=== PATIENT | female | born 1975 | race African-American/Black ===

== ENCOUNTER 2017-05-01 11:45 | Emergency (ER) | payer MEDICAID ==
[~2017-05-01] VITALS: Ht 167.6 cm; Wt 75.7 kg
[2017-05-01] MEDS ORDERED: [UNRECOGNIZED DRUG - REMARK] (12:00)
[2017-05-01] MEDS ORDERED: [UNRECOGNIZED DRUG - REMARK] (12:00)
[2017-05-01] MEDS ORDERED: DESL5TAB42 PO (12:00)
[2017-05-01 13:20] LABS: BASOPHILS % (AUTO) 0.7 % (0.0-2.0); EOSINOPHILS # (AUTO) 0.5 K/uL (0.0-0.7); EOSINOPHILS % (AUTO) 9.9 % (0.0-7.0); HEMATOCRIT 37.2 % (31.2-41.9); HEMOGLOBIN 12.2 g/dL (10.9-14.3); LYMPHOCYTES # (AUTO) 1.4 K/uL (20.0-40.0); LYMPHOCYTES % (AUTO) 27.1 % (20.5-51.5); MEAN CORPUSCULAR HEMOGLOBIN 24.4 uug (24.7-32.8); MEAN CORPUSCULAR HGB CONC 33 g/dL (32.3-35.6); MEAN CORPUSCULAR VOLUME 74.5 fL (75.5-95.3); MONOCYTES # (AUTO) 0.3 K/uL (2.0-10.0); MONOCYTES % (AUTO) 6.6 % (0.0-11.0); NEUTROPHILS # (AUTO) 2.8 K/uL (1.8-8.9); NEUTROPHILS % (AUTO) 55.7 % (38.5-71.5); PLATELET COUNT (AUTO) 162 K/uL (179-408); RED BLOOD CELL COUNT(AUTO) 4.99 MIL/uL (3.63-4.92)
[2017-05-01 13:34] LABS: *BILIRUBIN,URIN NEGATIVE (NEGATIVE); *BLOOD, URINE NEGATIVE (NEGATIVE); *CLARITY,URINE CLEAR (CLEAR); *COLOR,URINE YELLOW (YELLOW); *KETONES,URINE NEGATIVE (NEGATIVE); *PROTEIN,URINE NEGATIVE (NEGATIVE); *UROBILINOGEN,URINE 0.2 E.U./dl (NORMAL); LEUKOCYTE ESTERASE ,URINE TRACE (NEGATIVE); NITRITE, URINE NEGATIVE (NEGATIVE); UGLUCOSE NEGATIVE (NEGATIVE)
[2017-05-01 13:36] LABS: CREATININE 0.8 mg/dL (0.6-1.3); POTASSIUM 3.9 mmol/L (3.5-5.1)
[2017-05-01 13:42] LABS: BILIRUBIN,TOTAL 0.8 mg/dL (0.2-1.0); TOTAL PROTEIN, SERUM 7.9 g/dL (6.4-8.2)
[2017-05-01 13:53] LABS: *URINE HCG, QUAL NEGATIVE (NEGATIVE)
[2017-05-01 13:59] LABS: BACTERIA,URINE NONE SEEN /HPF (NONE SEEN); RBC,URINE 0-3 /HPF (0-3)
[2017-05-01 14:00] LABS: SQUAMOUS EPITHELIAL CELL,UR MODERATE /HPF (NONE SEEN)
[2017-05-01 14:07] LABS: BAND % (MANUAL) 1 % (0-10); BASOPHILS % (MANUAL) 1 % (0-2); EOSINOPHILS % (MANUAL) 8 % (0-8); LYMPHOCYTES % (MANUAL) 21 % (20-40); MONOCYTES % (MANUAL) 6 % (2-10); NEUTROPHILS % (MANUAL) 63 % (42-75)
--- NOTE | 2017-05-01 14:20 | NUR ---
Pt resting in gurney with no s/s of acute distress noted.
--- NOTE | 2017-05-01 15:10 | NUR ---
Patient discharged to home in stable conditon. Written and verbal after care instructions given. Patient verbalizes understanding of instructions.pt walks in steady gait, pt eubreathing, no sign of distress. pt says feels better.
[2017-05-01 15:26] VITALS: BP 139/79
== END 2017-05-01 15:27 | disposition home or self-care (01) ==
LOC: ER 11:47
DX: J45.909 Unspecified asthma, uncomplicated (principal); R51 Headache; I10 Essential (primary) hypertension
CPT/HCPCS: 36415; 71010; 84703; 85025; A4663; J1885; J3590

== ENCOUNTER 2017-07-02 16:46 | Emergency (ER) | payer MEDICAID ==
[~2017-07-02] VITALS: Ht 167.6 cm; Wt 77.1 kg
[~2017-07-02 16:46] MED LIST: DESL5TAB42 PO; [UNRECOGNIZED DRUG - REMARK]; [UNRECOGNIZED DRUG - REMARK]
--- NOTE | 2017-07-02 17:13 | NUR ---
PT WAS EVALUATED BY DR LUND. PT WAS D/C TO HOME. D/C INSTRUCTIONS GIVEN TO THE PT.
[2017-07-02 17:18] VITALS: BP 132/69
== END 2017-07-02 17:18 | disposition home or self-care (01) ==
LOC: ER 16:49
DX: J45.909 Unspecified asthma, uncomplicated (principal); I10 Essential (primary) hypertension
CPT/HCPCS: 99283; A4663

== ENCOUNTER 2017-08-26 15:23 | Emergency (ER) | payer MEDICAID ==
[~2017-08-26] VITALS: Ht 167.6 cm; Wt 77.1 kg
[2017-08-26] MEDS ORDERED: IBUP800T54 PO (15:45)
[2017-08-26 17:07] LABS: BASOPHILS % (AUTO) 0.9 % (0.0-2.0); EOSINOPHILS # (AUTO) 0.4 K/uL (0.0-0.7); HEMATOCRIT 37.9 % (31.2-41.9); HEMOGLOBIN 12.2 g/dL (10.9-14.3); LYMPHOCYTES # (AUTO) 1.6 K/uL (20.0-40.0); LYMPHOCYTES % (AUTO) 33.6 % (20.5-51.5); MEAN CORPUSCULAR HEMOGLOBIN 23.6 uug (24.7-32.8); MEAN CORPUSCULAR HGB CONC 32 g/dL (32.3-35.6); MONOCYTES # (AUTO) 0.2 K/uL (2.0-10.0); MONOCYTES % (AUTO) 4.8 % (0.0-11.0); NEUTROPHILS # (AUTO) 2.5 K/uL (1.8-8.9); NEUTROPHILS % (AUTO) 52.7 % (38.5-71.5); PLATELET COUNT (AUTO) 167 K/uL (179-408); RED BLOOD CELL COUNT(AUTO) 5.18 MIL/uL (3.63-4.92); WHITE BLOOD COUNT (AUTO) 4.8 K/uL (3.8-11.8)
[2017-08-26 17:12] LABS: CREATININE 0.7 mg/dL (0.6-1.3); POTASSIUM 3.7 mmol/L (3.5-5.1)
[2017-08-26 17:18] LABS: BILIRUBIN,DIRECT 0.2 mg/dL (0.0-0.2); BILIRUBIN,TOTAL 0.6 mg/dL (0.2-1.0); TOTAL PROTEIN, SERUM 7.7 g/dL (6.4-8.2)
[2017-08-26 18:49] LABS: *BILIRUBIN,URIN NEGATIVE (NEGATIVE); *BLOOD, URINE NEGATIVE (NEGATIVE); *CLARITY,URINE CLEAR (CLEAR); *COLOR,URINE YELLOW (YELLOW); *KETONES,URINE NEGATIVE (NEGATIVE); *PROTEIN,URINE NEGATIVE (NEGATIVE); *UROBILINOGEN,URINE 0.2 E.U./dl (NORMAL); LEUKOCYTE ESTERASE ,URINE NEGATIVE (NEGATIVE); NITRITE, URINE NEGATIVE (NEGATIVE); PH,URINE 7.5 (5.0-8.0); UGLUCOSE NEGATIVE (NEGATIVE)
[2017-08-26 18:57] LABS: BACTERIA,URINE FEW /HPF (NONE SEEN); RBC,URINE 0-3 /HPF (0-3); SQUAMOUS EPITHELIAL CELL,UR FEW /HPF (NONE SEEN); WBC,URINE 0-3 /HPF (0-3)
[2017-08-26 19:24] VITALS: BP 138/106
== END 2017-08-26 19:28 | disposition home or self-care (01) ==
LOC: ER 15:24
DX: R10.32 Left lower quadrant pain (principal); M54.5 Low back pain; J02.9 Acute pharyngitis, unspecified; I10 Essential (primary) hypertension; J45.909 Unspecified asthma, uncomplicated
CPT/HCPCS: 36415; 71045; 74176; 80048; 80076; 81001; 83690; 84703; 85025; 99285; A4663

== ENCOUNTER 2018-05-06 07:10 | Emergency (ER) | payer MEDICAID ==
[~2018-05-06] VITALS: Ht 165.1 cm; Wt 73.5 kg
[~2018-05-06 07:10] MED LIST changes: -DESL5TAB42 PO; +IBUP800T54 PO; -[UNRECOGNIZED DRUG - REMARK]; -[UNRECOGNIZED DRUG - REMARK]
[2018-05-06] MEDS ORDERED: IPRATROPIUM BROMIDE 0.5 MG/2.5 ML NEBU NEB ONE (07:30)
[2018-05-06] MEDS ORDERED: ALBUTEROL SULFATE 2.5 MG/3 ML NEBU NEB ONE (07:30)
[2018-05-06] MEDS ORDERED: ALBUTEROL SULFATE 2.5 MG/3 ML NEBU ONE (07:52)
[2018-05-06] MEDS ORDERED: IPRATROPIUM BROMIDE 0.5 MG/2.5 ML NEBU ONE (07:52)
--- NOTE | 2018-05-06 08:31 | NUR ---
Patient discharged to home in stable conditon. Written and verbal after care instructions given. Patient verbalizes understanding of instructions.PT WALKS IN STEADY GAIT. PT SAYS FEELS BETTER, NO SIGN OF DISTRESS AT THIS TIME.
[2018-05-06 08:32] VITALS: BP 131/88
== END 2018-05-06 08:39 | disposition home or self-care (01) ==
LOC: ER 07:11
DX: J06.9 Acute upper respiratory infection, unspecified (principal); M25.522 Pain in left elbow; M25.572 Pain in left ankle and joints of left foot; I10 Essential (primary) hypertension; J45.909 Unspecified asthma, uncomplicated
CPT/HCPCS: 71045; 73080; 73610; 94640; 99284; A4663; J3590

== ENCOUNTER 2018-09-25 08:34 | Emergency (ER) | payer MEDICAID ==
[~2018-09-25] VITALS: Ht 165.1 cm; Wt 52.6 kg
[2018-09-25] MEDS ORDERED: KETOROLAC TROMETHAMINE 30 MG INJ ONE (08:57)
[2018-09-25] MEDS ORDERED: KETOROLAC TROMETHAMINE 30 MG INJ IM ONE (09:00)
--- NOTE | 2018-09-25 09:14 | NUR ---
Patient discharged to home in stable conditon & brisk steady gait. Written and verbal after care instructions given to patient. Patient verbalizes understanding of instructions.
== END 2018-09-25 09:16 | disposition home or self-care (01) ==
LOC: ER 08:34
DX: S16.1XXA Strain of muscle, fascia and tendon at neck level, initial encounter (principal); S39.012A Strain of muscle, fascia and tendon of lower back, initial encounter; M62.830 Muscle spasm of back; I10 Essential (primary) hypertension; J45.909 Unspecified asthma, uncomplicated; Z79.1 Long term (current) use of non-steroidal anti-inflammatories (NSAID); V49.9XXA Car occupant (driver) (passenger) injured in unspecified traffic accident, initial encounter; Y93.89 Activity, other specified; Y92.89 Other specified places as the place of occurrence of the external cause; Y99.8 Other external cause status
CPT/HCPCS: 96372; 99283; J1885; A4663

== ENCOUNTER 2019-09-05 08:11 | Emergency (ER) | payer MEDICAID ==
[~2019-09-05] VITALS: Ht 167.6 cm; Wt 74.8 kg
--- NOTE | 2019-09-05 08:26 | NUR ---
patient brought into room. doctor yuridia to see patient.
[2019-09-05] MEDS ORDERED: ALBUTEROL SULFATE 2.5 MG/3 ML NEBU ONE (08:43)
[2019-09-05] MEDS ORDERED: predniSONE 20 MG TABLET ONE (08:44)
[2019-09-05] MEDS ORDERED: IPRATROPIUM BROMIDE 0.5 MG/2.5 ML NEBU ONE (08:44)
[2019-09-05] MEDS ORDERED: IPRATROPIUM BROMIDE 0.5 MG/2.5 ML NEBU NEB ONE (08:45)
[2019-09-05] MEDS ORDERED: predniSONE 20 MG TABLET PO ONE (08:45)
[2019-09-05] MEDS ORDERED: ALBUTEROL SULFATE 2.5 MG/3 ML NEBU NEB ONE (08:45)
--- NOTE | 2019-09-05 08:45 | NUR ---
RECEIVED BREATHING TREATMENT.
[2019-09-05] MEDS ORDERED: HYDROCODONE/APAP 10-325 MG TABLET ONE (08:53)
[2019-09-05] MEDS ORDERED: HYDROCODONE/APAP 10-325 MG TABLET PO ONE (09:00)
--- NOTE | 2019-09-05 10:41 | NUR ---
PATIENT DISCHARGE MEDICATION AND PRESCRIPTIONS GIVEN. INSTRUCTED PATIENT NOT TO DRIVE DUE TO MEDICATIONS.
--- NOTE | 2019-09-05 10:42 | NUR ---
DISHARGE PAPERWORK GIVEN AND SIGNED
== END 2019-09-05 10:47 | disposition home or self-care (01) ==
LOC: ER 08:11
DX: S13.4XXA Sprain of ligaments of cervical spine, initial encounter (principal); J06.9 Acute upper respiratory infection, unspecified; I10 Essential (primary) hypertension; J45.909 Unspecified asthma, uncomplicated; Z79.1 Long term (current) use of non-steroidal anti-inflammatories (NSAID); X58.XXXA Exposure to other specified factors, initial encounter; Y93.89 Activity, other specified; Y92.89 Other specified places as the place of occurrence of the external cause; Y99.8 Other external cause status
CPT/HCPCS: 72040; 72220; 94640; 99283; J7512; A4663; J3590

== ENCOUNTER 2020-08-21 09:52 | Emergency (ER) | payer MEDICAID, OTHER ==
[~2020-08-21] VITALS: Ht 167.6 cm; Wt 54.4 kg
--- NOTE | 2020-08-21 10:09 | NUR ---
DR PAUL AT BEDSIDE FOR PT EVALUATION
[2020-08-21] MEDS ORDERED: ALBUTEROL SULFATE 8 GM HFA.AER.AD IH ONE (10:15)
[2020-08-21] MEDS ORDERED: HYDROCHLOROTHIAZIDE 25 MG TABLET PO ONE (10:15)
[2020-08-21] MEDS ORDERED: HYDROCHLOROTHIAZIDE 25 MG TABLET ONE (10:19)
[2020-08-21] MEDS ORDERED: LISINOPRIL 10 MG TABLET PO ONE (10:30)
--- NOTE | 2020-08-21 10:31 | NUR ---
Covid swab sent
[2020-08-21 10:42] VITALS: BP 180/105
[2020-08-21] MEDS ORDERED: LISINOPRIL 10 MG TABLET ONE (10:44)
[2020-08-21] MEDS ORDERED: predniSONE 20 MG TABLET PO ONE (10:45)
[2020-08-21 11:25] LABS: *URINE HCG, QUAL NEG (NEGATIVE)
[2020-08-21] MEDS ORDERED: predniSONE 20 MG TABLET ONE (11:32)
--- NOTE | 2020-08-21 11:40 | NUR ---
Per Dr. Pemberton, pt stable for discharge. DC instructions and prescriptions given and reviewed with patient. Verbalized understanding. Left ER in stable condition.
== END 2020-08-21 11:43 | disposition home or self-care (01) ==
LOC: MERGE 09:52 → ER 09:52
DX: J45.901 Unspecified asthma with (acute) exacerbation (principal); I10 Essential (primary) hypertension; Z76.0 Encounter for issue of repeat prescription; Z20.822 Contact with and (suspected) exposure to COVID-19
CPT/HCPCS: 71045; 84703; A4663; J3535; J7512; U0003

== ENCOUNTER 2020-09-29 19:36 | Emergency (ER) | payer MEDICAID, OTHER ==
[~2020-09-29] VITALS: Ht 167.6 cm; Wt 74.8 kg
--- NOTE | 2020-09-29 19:40 | NUR ---
Dr. Ramesh at bedside for MSE
[2020-09-29] MEDS ORDERED: IPRATROPIUM BROMIDE 0.5 MG/2.5 ML NEBU NEB ONE ×3 (20:00)
[2020-09-29] MEDS ORDERED: methylPREDNISolone SOD SUCC 125 MG/2 ML VIAL IV ONE (20:00)
[2020-09-29] MEDS ORDERED: ALBUTEROL SULFATE 2.5 MG/3 ML NEBU NEB ONE ×3 (20:00)
[2020-09-29] MEDS ORDERED: methylPREDNISolone SOD SUCC 125 MG/2 ML VIAL ONE (20:07)
[2020-09-29] MEDS ORDERED: MAGNESIUM SULFATE/D5W 200 ML ONE (20:07)
[2020-09-29] MEDS: MAGNESIUM SULFATE/D5W 100 ML IV SCH (20:10)
--- NOTE | 2020-09-29 21:48 | NUR ---
IV removed. Catheter intact and site benign. Pressure and 4x4 gauze applied to site. No bleeding noted.Patient discharged to home in stable condition. Written and verbal after care instructions given. Patient verbalizes understanding of instructions. Stressed follow up or return to ER for worsening s/s. Patient ambulating with steady gait. NAD noted
[2020-09-29 22:30] VITALS: BP 143/92
== END 2020-09-29 21:48 | disposition home or self-care (01) ==
LOC: ER 19:36
DX: J45.901 Unspecified asthma with (acute) exacerbation (principal); R00.0 Tachycardia, unspecified; R03.0 Elevated blood-pressure reading, without diagnosis of hypertension; Z20.822 Contact with and (suspected) exposure to COVID-19
CPT/HCPCS: 87426; 94640; 96365; 96375; 99284; J2930; J3475

== ENCOUNTER 2021-02-11 09:05 | Emergency (ER) | payer MEDICAID ==
[~2021-02-11] VITALS: Ht 167.6 cm; Wt 72.6 kg
[2021-02-11] MEDS ORDERED: HYDROCODONE/APAP 5-325MG TABLET PO ONE (09:45)
[2021-02-11] MEDS ORDERED: HYDROCODONE/APAP 5-325MG TABLET ONE (09:55)
[2021-02-11 10:25] LABS: *URINE HCG, QUAL NEGATIVE (NEGATIVE)
--- NOTE | 2021-02-11 11:27 | NUR ---
Patient is resting comfortably on gurney while using her personal electronic device, NAD, pending results@this time.
[2021-02-11] MEDS ORDERED: HYDR-4275 PO (12:08)
[2021-02-11] MEDS ORDERED: ONDA4TAB11 PO (12:08)
--- NOTE | 2021-02-11 12:16 | NUR ---
Patient discharged to home in stable condition with steady gait. Written and verbal after care instructions given to patient. Patient verbalized understanding & compliance of instructions. Stressed follow up with primary doctor or return to ER for worsening s/s.
== END 2021-02-11 12:16 | disposition home or self-care (01) ==
LOC: ER 09:05
DX: S06.0X0A Concussion without loss of consciousness, initial encounter (principal); S16.1XXA Strain of muscle, fascia and tendon at neck level, initial encounter; V49.40XA Driver injured in collision with unspecified motor vehicles in traffic accident, initial encounter; Y92.410 Unspecified street and highway as the place of occurrence of the external cause; J45.909 Unspecified asthma, uncomplicated
CPT/HCPCS: 70450; 71101; 72100; 72125; 84703; A4663

== ENCOUNTER 2021-03-16 13:25 | Emergency (ER) | payer MEDICAID ==
[~2021-03-16] VITALS: Ht 167.6 cm; Wt 74.8 kg
[~2021-03-16 13:25] MED LIST changes: +HYDR-4275 PO; +ONDA4TAB11 PO
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
[2021-03-16] MEDS ORDERED: ALBUTEROL SULFATE 2.5 MG/3 ML NEBU NEB ONE (14:00)
[2021-03-16] MEDS ORDERED: CYCL5TAB PO (14:38)
[2021-03-16] MEDS ORDERED: NAPR-1192 PO (14:38)
[2021-03-16] MEDS ORDERED: ALBUTEROL SULFATE 2.5 MG/3 ML NEBU ONE (14:57)
--- NOTE | 2021-03-17 08:20 | NUR ---
Pt called back regarding her covid test and her son's, informed that both tested POSITIVE. She will call back later in the day for PCR results if available.
--- NOTE | 2021-03-18 17:47 | NUR ---
Called the patient to let her know that she is positive for Covid. Quarantine instructions given etc.
== END 2021-03-16 15:26 | disposition home or self-care (01) ==
LOC: ER 13:25
DX: M54.16 Radiculopathy, lumbar region (principal); S39.012A Strain of muscle, fascia and tendon of lower back, initial encounter; V49.40XA Driver injured in collision with unspecified motor vehicles in traffic accident, initial encounter; Y92.410 Unspecified street and highway as the place of occurrence of the external cause; U07.1 COVID-19; J45.909 Unspecified asthma, uncomplicated; R94.31 Abnormal electrocardiogram [ECG] [EKG]
CPT/HCPCS: 71045; 72131; 87426; 93005; 99285; U0003; A4663

== ENCOUNTER 2021-05-07 11:15 | Emergency (ER) | payer MEDICAID ==
[~2021-05-07] VITALS: Ht 167.6 cm; Wt 74.8 kg
[~2021-05-07 11:15] MED LIST changes: +CYCL5TAB PO; +NAPR-1192 PO
[2021-05-07] MEDS: methylPREDNISolone SOD SUCC 125 MG/2 ML VIAL IV ONE (12:12)
[2021-05-07] MEDS: ALBUTEROL SULFATE 2.5 MG/3 ML NEBU NEB ONE ×4 (12:14→14:01)
[2021-05-07] MEDS: IPRATROPIUM BROMIDE 0.5 MG/2.5 ML NEBU NEB ONE ×4 (12:14→14:01)
[2021-05-07] MEDS ORDERED: methylPREDNISolone SOD SUCC 125 MG/2 ML VIAL ONE (12:21)
[2021-05-07] MEDS ORDERED: ALBUTEROL SULFATE 2.5 MG/3 ML NEBU ONE ×3 (12:43→14:00)
[2021-05-07] MEDS ORDERED: IPRATROPIUM BROMIDE 0.5 MG/2.5 ML NEBU ONE ×3 (12:43→14:00)
--- NOTE | 2021-05-07 13:00 | NUR ---
PT CO "STRESS HEADACHE", NOTIFIED.
[2021-05-07] MEDS: ACETAMINOPHEN ES 500 MG TABLET PO ONE (13:14)
[2021-05-07] MEDS ORDERED: ACETAMINOPHEN ES 500 MG TABLET ONE (13:18)
--- NOTE | 2021-05-07 14:30 | NUR ---
Patient discharged to home in stable condition. Written and verbal after care instructions given. Patient verbalizes understanding of instructions. Stressed follow up or return to ER for worsening s/s.PT SAYS FEELS BETTER, READY TO GO HOME. PT WALKS IN STEADY GAIT, NO SIGN OF DISTRESS.
[2021-05-07] MEDS ORDERED: IBUP-1955 PO (14:32)
[2021-05-07] MEDS ORDERED: ALBU2.5V13 NEB (14:32)
[2021-05-07] MEDS ORDERED: ALBU8.5H8 INH (14:32)
[2021-05-07] MEDS ORDERED: PRED20TA PO (14:32)
[2021-05-07 14:42] VITALS: BP 121/81
== END 2021-05-07 14:30 | disposition home or self-care (01) ==
LOC: ER 11:15
DX: J45.901 Unspecified asthma with (acute) exacerbation (principal)
CPT/HCPCS: 93005; 94640 ×3; 96374; 99285; J2930; A4663; A9150; J3590

== ENCOUNTER 2021-09-13 01:06 | Emergency (ER) | payer MEDICAID ==
[~2021-09-13] VITALS: Ht 167.6 cm; Wt 74.8 kg
[~2021-09-13 01:06] MED LIST changes: +ALBU2.5V13 NEB; +ALBU8.5H8 INH; +IBUP-1955 PO; +PRED20TA PO
--- NOTE | 2021-09-13 01:38 | NUR ---
pt a/o c/o sob. pt sitting upright in bed leaning over bedside table.
[2021-09-13] MEDS ORDERED: IPRATROPIUM BROMIDE 0.5 MG/2.5 ML NEBU NEB ONE (02:00)
[2021-09-13] MEDS ORDERED: ALBUTEROL SULFATE 2.5 MG/3 ML NEBU NEB ONE (02:00)
[2021-09-13] MEDS ORDERED: methylPREDNISolone SOD SUCC 125 MG/2 ML VIAL IV ONE (02:00)
[2021-09-13] MEDS ORDERED: methylPREDNISolone SOD SUCC 125 MG/2 ML VIAL ONE (02:03)
[2021-09-13] MEDS ORDERED: IPRATROPIUM BROMIDE 0.5 MG/2.5 ML NEBU ONE (02:04)
[2021-09-13] MEDS ORDERED: ALBUTEROL SULFATE 2.5 MG/ 0.5 ML NEBU ONE (02:04)
[2021-09-13] MEDS ORDERED: ALBU0.63 IH (02:10)
[2021-09-13] MEDS ORDERED: ALBU8.5H8 IH (02:10)
[2021-09-13] MEDS ORDERED: FLUT1DIS28 INH (02:10)
[2021-09-13] MEDS ORDERED: PRED20TA PO (02:10)
[2021-09-13 02:19] LABS: HEMATOCRIT 36.3 % (31.2-41.9); MEAN CORPUSCULAR HEMOGLOBIN 25.6 uug (24.7-32.8); PLATELET COUNT (AUTO) 189 K/uL (179-408)
[2021-09-13] MEDS ORDERED: ALBUTEROL SULFATE 2.5 MG/3 ML NEBU ONE (02:19)
[2021-09-13 02:26] LABS: CREATININE 0.8 mg/dL (0.6-1.3); POTASSIUM 3.5 mmol/L (3.5-5.1)
[2021-09-13 02:38] LABS: BILIRUBIN,DIRECT 0.1 mg/dL (0.0-0.2); BILIRUBIN,TOTAL 0.5 mg/dL (0.2-1.0); TOTAL PROTEIN, SERUM 7.1 g/dL (6.4-8.2)
[2021-09-13 03:02] VITALS: BP 151/90
--- NOTE | 2021-09-13 03:02 | NUR ---
Patient discharged to home in stable condition. Written and verbal after care instructions given. Patient verbalizes understanding of instructions. Stressed follow up or return to ER for worsening s/s. pt ambulated with steady gait. denies pain and SOB.
== END 2021-09-13 03:05 | disposition home or self-care (01) ==
LOC: ER 01:20
DX: J45.901 Unspecified asthma with (acute) exacerbation (principal); Z20.822 Contact with and (suspected) exposure to COVID-19; R03.0 Elevated blood-pressure reading, without diagnosis of hypertension
CPT/HCPCS: 36415; 80048; 80076; 83880; 84702; 85025; 87426; 94644; 96374; 99285; J2930; A4663; J3590

== ENCOUNTER 2022-07-07 05:25 | Emergency (ER) | payer MEDICAID ==
[~2022-07-07] VITALS: Ht 167.6 cm; Wt 74.8 kg
[~2022-07-07 05:25] MED LIST changes: +ALBU0.63 IH; +ALBU8.5H8 IH; +FLUT1DIS28 INH
[2022-07-07] MEDS ORDERED: ACETAMINOPHEN ES 500 MG TABLET PO ONE (06:15)
[2022-07-07] MEDS ORDERED: ACETAMINOPHEN ES 500 MG TABLET ONE (06:38)
[2022-07-07] MEDS ORDERED: PRED20TA PO (07:08)
[2022-07-07] MEDS ORDERED: ALBU18HF2 INH (07:08)
[2022-07-07] MEDS ORDERED: BENZ-13 PO (07:08)
[2022-07-07] MEDS ORDERED: IBUP-1955 PO (07:08)
[2022-07-07 08:09] VITALS: BP 132/78
== END 2022-07-07 08:10 | disposition home or self-care (01) ==
LOC: ER 05:43
DX: U07.1 COVID-19 (principal); J45.909 Unspecified asthma, uncomplicated; I10 Essential (primary) hypertension
CPT/HCPCS: 87400; A4663; A9150

== ENCOUNTER 2022-09-16 11:24 | Emergency (ER) | payer MEDICAID ==
[~2022-09-16] VITALS: Ht 167.6 cm; Wt 73.0 kg
[~2022-09-16 11:24] MED LIST changes: +ALBU18HF2 INH; +BENZ-13 PO
[2022-09-16] MEDS ORDERED: IPRATROPIUM BROMIDE 0.5 MG/2.5 ML NEBU NEB ONE ×2 (12:00→12:45)
[2022-09-16] MEDS ORDERED: predniSONE 10 MG TABLET PO ONE (12:00)
[2022-09-16] MEDS ORDERED: ALBUTEROL SULFATE 2.5 MG/3 ML NEBU NEB ONE ×2 (12:00→12:45)
[2022-09-16] MEDS ORDERED: ACETAMINOPHEN ES 500 MG TABLET PO ONE (12:00)
[2022-09-16] MEDS ORDERED: ACETAMINOPHEN ES 500 MG TABLET ONE (12:12)
[2022-09-16] MEDS ORDERED: predniSONE 20 MG TABLET ONE (12:12)
[2022-09-16] MEDS ORDERED: ALBUTEROL SULFATE 2.5 MG/3 ML NEBU ONE ×2 (12:15→12:51)
[2022-09-16] MEDS ORDERED: IPRATROPIUM BROMIDE 0.5 MG/2.5 ML NEBU ONE ×2 (12:15→12:51)
[2022-09-16] MEDS ORDERED: PRED50TA PO (12:40)
[2022-09-16] MEDS ORDERED: ALBU6.7H9 INH (12:40)
[2022-09-16] MEDS ORDERED: FLUT1DIS28 INH (13:34)
[2022-09-16] MEDS ORDERED: IBUPROFEN 400 MG TABLET ONE (13:42)
[2022-09-16] MEDS ORDERED: IBUPROFEN 400 MG TABLET PO ONE (13:45)
--- NOTE | 2022-09-16 14:03 | NUR ---
Patient discharged to home in stable condition. Written and verbal after care instructions given. Patient verbalizes understanding of instructions. Stressed follow up or return to ER for worsening s/s.
[2022-09-16 14:28] VITALS: BP 137/81
== END 2022-09-16 14:03 | disposition home or self-care (01) ==
LOC: ER 11:24
DX: J45.901 Unspecified asthma with (acute) exacerbation (principal); S69.92XA Unspecified injury of left wrist, hand and finger(s), initial encounter; X58.XXXA Exposure to other specified factors, initial encounter; Y92.89 Other specified places as the place of occurrence of the external cause; Z20.822 Contact with and (suspected) exposure to COVID-19; I10 Essential (primary) hypertension
CPT/HCPCS: 99285; 87426; 29130; 87804 ×2; 93005; 73120; 94640 ×2; J7512; A4663; A9150; J3590

== ENCOUNTER 2024-06-08 22:43 | Emergency (ER) | payer MEDICAID ==
[~2024-06-08] VITALS: Ht 1706.9 cm; Wt 74.8 kg
[~2024-06-08 22:43] MED LIST changes: +ALBU6.7H9 INH; +PRED50TA PO
[2024-06-08] MEDS ORDERED: IV D5W-0.9% NS 1000 ML BAG IV ONE (22:45)
[2024-06-08] MEDS ORDERED: THIAMINE HCL 200 MG/2 ML VIAL IV ONE (22:45)
[2024-06-08] MEDS ORDERED: METOCLOPRAMIDE HCL 10 MG/2 ML VIAL IV ONE (22:45)
[2024-06-08] MEDS ORDERED: KETOROLAC TROMETHAMINE 30 MG INJ ONE (23:35)
[2024-06-08] MEDS: KETOROLAC TROMETHAMINE 30 MG INJ IM ONE (23:40)
[2024-06-08 23:42] LABS: BASOPHILS % (AUTO) 0.9 % (0.0-2.0); EOSINOPHILS # (AUTO) 0.2 K/uL (0.0-0.7); EOSINOPHILS % (AUTO) 5.6 % (0.0-7.0); HEMATOCRIT 34.7 % (31.2-41.9); HEMOGLOBIN 11.4 g/dL (10.9-14.3); LYMPHOCYTES # (AUTO) 1.4 K/uL (0.8-4.8); LYMPHOCYTES % (AUTO) 38.6 % (20.5-51.5); MEAN CORPUSCULAR HGB CONC 33 g/dL (32.3-35.6); MEAN CORPUSCULAR VOLUME 76.4 fL (75.5-95.3); MONOCYTES # (AUTO) 0.3 K/uL (0.1-1.30); MONOCYTES % (AUTO) 8.5 % (0.0-11.0); NEUTROPHILS # (AUTO) 1.7 K/uL (1.8-8.9); NEUTROPHILS % (AUTO) 46.4 % (38.5-71.5); PLATELET COUNT (AUTO) 167 K/uL (179-408); RED BLOOD CELL COUNT(AUTO) 4.55 MIL/uL (3.63-4.92); WHITE BLOOD COUNT (AUTO) 3.7 K/uL (3.8-11.8)
[2024-06-09 00:12] LABS: ALANINE AMINOTRANSFERASE 32 U/L (14-59); ALBUMIN 3.4 g/dL (3.4-5.0); ALKALINE PHOSPHATASE 95 U/L (50-136); ASPARTATE AMINOTRANSFERASE 20 U/L (15-37); BILIRUBIN,DIRECT 0.2 mg/dL (0.0-0.2); BILIRUBIN,TOTAL 0.8 mg/dL (0.2-1.0); CALCIUM 9.4 mg/dL (8.5-10.1); CARBON DIOXIDE 33 mmol/L (21-32); CHLORIDE 103 mmol/L (98-107); CREATININE 0.7 mg/dL (0.6-1.3); GLUCOSE 114 mg/dL (74-106); POTASSIUM 3.2 mmol/L (3.5-5.1); SODIUM SERUM 141 mmol/L (136-145); TOTAL PROTEIN, SERUM 6.9 g/dL (6.4-8.2); UREA NITROGEN, BLOOD 18 mg/dL (7-18)
[2024-06-09] MEDS ORDERED: POTASSIUM CHLORIDE 20 MEQ TAB.PRT.SR PO ONE (01:00)
[2024-06-09] MEDS ORDERED: POTASSIUM CHLORIDE 20 MEQ TAB.PRT.SR ONE (01:02)
[2024-06-09] MEDS ORDERED: POTASSIUM CHLORIDE 20 MEQ POWDER PACKET ONE (01:09)
[2024-06-09 01:22] LABS: *BILIRUBIN,URIN NEGATIVE (NEGATIVE); *BLOOD, URINE NEGATIVE (NEGATIVE); *CLARITY,URINE CLEAR (CLEAR); *COLOR,URINE YELLOW (YELLOW); *KETONES,URINE NEGATIVE (NEGATIVE); *PROTEIN,URINE NEGATIVE (NEGATIVE); *UROBILINOGEN,URINE 0.2 E.U./dl (NORMAL); LEUKOCYTE ESTERASE ,URINE NEGATIVE (NEGATIVE); NITRITE, URINE NEGATIVE (NEGATIVE); UGLUCOSE NEGATIVE (NEGATIVE)
[2024-06-09] MEDS: POTASSIUM CHLORIDE 20 MEQ POWDER PACKET PO STA (01:22)
[2024-06-09 01:41] LABS: *URINE HCG, QUAL NEGATIVE (NEGATIVE)
[2024-06-09] MEDS ORDERED: AMOX-430 PO (01:49)
[2024-06-09] MEDS ORDERED: FLUT16SP16 BNOSTRILS (01:49)
[2024-06-09 02:25] VITALS: BP 116/71; O2SAT 97
== END 2024-06-09 02:25 | disposition home or self-care (01) ==
LOC: ER 22:43
DX: J01.90 Acute sinusitis, unspecified (principal); J20.9 Acute bronchitis, unspecified; E87.6 Hypokalemia; R10.2 Pelvic and perineal pain; I11.9 Hypertensive heart disease without heart failure; R51.9 Headache, unspecified; R07.89 Other chest pain; R94.31 Abnormal electrocardiogram [ECG] [EKG]; R42 Dizziness and giddiness; J45.909 Unspecified asthma, uncomplicated; Z79.51 Long term (current) use of inhaled steroids; Z79.52 Long term (current) use of systemic steroids; Z88.7 Allergy status to serum and vaccine
CPT/HCPCS: 99285; 71045; 80076; 80048; 85025; 84484; 36415; 93005 ×2; 96372; 81003; 84703; J1885; A4606; A4663

== ENCOUNTER 2025-03-26 17:58 | Emergency (ER) | payer MEDICAID ==
[~2025-03-26] VITALS: Ht 167.6 cm; Wt 72.6 kg
[~2025-03-26 17:58] MED LIST changes: +AMOX-430 PO; +FLUT16SP16 BNOSTRILS
[2025-03-26 19:10] LABS: PLATELET COUNT (AUTO) 180 K/uL (179-408); RED BLOOD CELL COUNT(AUTO) 4.73 MIL/uL (3.63-4.92); RED CELL DISTRIBUTION WIDTH 14.1 % (12.3-17.7); WHITE BLOOD COUNT (AUTO) 3.8 K/uL (3.8-11.8)
[2025-03-26 19:11] LABS: *BILIRUBIN,URIN NEGATIVE (NEGATIVE); *BLOOD, URINE NEGATIVE (NEGATIVE); *CLARITY,URINE CLEAR (CLEAR); *COLOR,URINE LIGHT YELLOW (YELLOW); *KETONES,URINE NEGATIVE (NEGATIVE); *PROTEIN,URINE NEGATIVE (NEGATIVE); *UROBILINOGEN,URINE 0.2 E.U./dl (NORMAL); LEUKOCYTE ESTERASE ,URINE 2+ (NEGATIVE); NITRITE, URINE NEGATIVE (NEGATIVE); UGLUCOSE NEGATIVE (NEGATIVE)
[2025-03-26 19:12] LABS: *URINE HCG, QUAL NEGATIVE (NEGATIVE)
[2025-03-26 19:16] LABS: CREATININE 0.5 mg/dL (0.6-1.3); SODIUM SERUM 141 mmol/L (136-145); UREA NITROGEN, BLOOD 12 mg/dL (7-18)
[2025-03-26 19:17] LABS: SQUAMOUS EPITHELIAL CELL,UR FEW /HPF (NONE SEEN)
[2025-03-26 19:23] LABS: ASPARTATE AMINOTRANSFERASE 18 U/L (15-37); TOTAL PROTEIN, SERUM 6.7 g/dL (6.4-8.2)
[2025-03-26] MEDS ORDERED: KETOROLAC TROMETHAMINE 30 MG INJ ONE ×2 (20:22)
[2025-03-26] MEDS ORDERED: ACETAMINOPHEN 500 MG TABLET ONE (20:22)
[2025-03-26] MEDS ORDERED: SULFAMETH/TRIMETH 800/160 MG TABLET ONE (20:22)
[2025-03-26 20:24] VITALS: TEMP 98
[2025-03-26] MEDS: KETOROLAC TROMETHAMINE 30 MG INJ IVP ONE (20:24)
[2025-03-26] MEDS: ACETAMINOPHEN 500 MG TABLET PO ONE (20:24)
[2025-03-26] MEDS: SULFAMETH/TRIMETH 800/160 MG TABLET PO ONE (20:24)
[2025-03-26 20:36] VITALS: BP 148/95
[2025-03-26] MEDS ORDERED: SULF1TAB48 PO (21:06)
[2025-03-26] MEDS ORDERED: FLUT16SP16 BNOSTRILS (21:07)
[2025-03-26 21:32] VITALS: BP 151/78; O2SAT 98
== END 2025-03-26 21:33 | disposition home or self-care (01) ==
LOC: ER 18:01
DX: R07.89 Other chest pain (principal); N39.0 Urinary tract infection, site not specified; I10 Essential (primary) hypertension; J45.909 Unspecified asthma, uncomplicated; Z79.51 Long term (current) use of inhaled steroids; Z79.52 Long term (current) use of systemic steroids; Z88.7 Allergy status to serum and vaccine
CPT/HCPCS: 99285; 96374; 71045; 80076; 80048; 81001; 84703; 85025; 85730; 87086; 84484 ×2; 36415; 93005; J1885 ×2; A4606; A4663; A9150

== ENCOUNTER 2025-06-16 04:10 | Emergency (ER) | payer MEDICAID ==
[~2025-06-16] VITALS: Ht 167.6 cm; Wt 72.6 kg
[~2025-06-16 04:10] MED LIST changes: +SULF1TAB48 PO
[2025-06-16 04:47] LABS: *BILIRUBIN,URIN NEGATIVE (NEGATIVE); *BLOOD, URINE NEGATIVE (NEGATIVE); *COLOR,URINE YELLOW (YELLOW); *KETONES,URINE NEGATIVE (NEGATIVE); *PROTEIN,URINE NEGATIVE (NEGATIVE); *UROBILINOGEN,URINE 0.2 E.U./dl (NORMAL); LEUKOCYTE ESTERASE ,URINE TRACE (NEGATIVE); NITRITE, URINE NEGATIVE (NEGATIVE); UGLUCOSE NEGATIVE (NEGATIVE)
[2025-06-16 04:48] LABS: *CLARITY,URINE HAZY (CLEAR)
[2025-06-16 04:52] LABS: *URINE HCG, QUAL NEGATIVE (NEGATIVE)
[2025-06-16 05:03] LABS: PLATELET COUNT (AUTO) 193 K/uL (179-408); RED BLOOD CELL COUNT(AUTO) 5.01 MIL/uL (3.63-4.92); RED CELL DISTRIBUTION WIDTH 13.6 % (12.3-17.7); WHITE BLOOD COUNT (AUTO) 4.8 K/uL (3.8-11.8)
[2025-06-16 05:08] LABS: SQUAMOUS EPITHELIAL CELL,UR FEW /HPF (NONE SEEN)
[2025-06-16 05:09] LABS: CREATININE 0.9 mg/dL (0.6-1.3); SODIUM SERUM 143.0 mmol/L (136-145); UREA NITROGEN, BLOOD 12.0 mg/dL (7-18)
[2025-06-16 05:15] LABS: ASPARTATE AMINOTRANSFERASE 22.0 U/L (15-37); TOTAL PROTEIN, SERUM 7.1 g/dL (6.4-8.2)
[2025-06-16 05:25] VITALS: BP 136/88
[2025-06-16] MEDS ORDERED: PANTOPRAZOLE SODIUM 40 MG TABLET.DR PO ONE (06:08)
[2025-06-16] MEDS: PANTOPRAZOLE SODIUM 40 MG TABLET.DR PO ONE (06:11)
[2025-06-16] MEDS ORDERED: PANT40TA2 PO (06:12)
[2025-06-16 06:36] VITALS: BP 133/80; O2SAT 99
== END 2025-06-16 06:17 | disposition home or self-care (01) ==
LOC: ER 04:20
DX: K27.9 Peptic ulcer, site unspecified, unspecified as acute or chronic, without hemorrhage or perforation (principal); R10.13 Epigastric pain; J45.909 Unspecified asthma, uncomplicated; I44.0 Atrioventricular block, first degree; I10 Essential (primary) hypertension; Z79.52 Long term (current) use of systemic steroids; Z79.899 Other long term (current) drug therapy; Z88.7 Allergy status to serum and vaccine
CPT/HCPCS: 36415; 83690; 84703; 85025; 93005; A4606; A4663